=== PATIENT | male | born 1965 | race Caucasian/White ===

== ENCOUNTER → 2017-09-28 | Outpatient (CLI) | payer OTHER ==
[~2017-09-28] MED LIST: GABAPENTIN; IBUPROFEN 800800 MG PO; PRAVACHOL; XANAX
== END ==
LOC: M.CT 16:29
DX: K40.20 Bilateral inguinal hernia, without obstruction or gangrene, not specified as recurrent (principal); K57.90 Diverticulosis of intestine, part unspecified, without perforation or abscess without bleeding